=== PATIENT | female | born 1980 | race Caucasian/White ===

== ENCOUNTER 2019-06-05 15:04 | Observation (INO) | payer MEDICAID, OTHER ==
[~2019-06-05] VITALS: Ht 167.6 cm; Wt 70.1 kg
[2019-06-05 15:50] VITALS: BP 132/76
== END 2019-06-05 16:45 | disposition left against medical advice (07) | DRG 563 ==
LOC: ER 15:16 → LDRP 16:11 → ER 16:13
PROVIDERS: ADMIT Specialist; ATTEND Specialist
DX: O20.0 Threatened abortion (principal); O26.893 Other specified pregnancy related conditions, third trimester; O26.853 Spotting complicating pregnancy, third trimester; R10.9 Unspecified abdominal pain; Z3A.29 29 weeks gestation of pregnancy
CPT/HCPCS: 99284; G0378